=== PATIENT | female | born 1970 | race Caucasian/White ===

== ENCOUNTER → 2020-09-17 17:09 | Outpatient (BNVA) | payer OTHER, SELFPAY | PROVIDERS: Visit Provider Family Medicine | DX: Z20.828 Contact with and (suspected) exposure to other viral communicable diseases (principal) | CPT/HCPCS: 87635 ==

== ENCOUNTER 2020-10-18 22:30 | Emergency (ER) | payer OTHER, SELFPAY ==
[2020-10-18 22:32] VITALS: BP 142/79; PULSE 71; RESP 16; TEMP 36.8; O2SAT 98; BMI 29.2
--- NOTE | 2020-10-18 22:38 | W.ED.OVERDOS ---
HPI - Overdose General: Chief Complaint: Overdose Stated Complaint: STATES SWALLOWED POISON/35% FOOD GRADE PEROXIDE Time Seen by Provider: 10/18/20 22:38 History of Present Illness: HPI Narrative: Patient is a 50-year-old female comes to the ED after an accidental poison ingestion. Ingestion occurred just prior to arrival. Patient went to grab some water out of her refrigerator. By accident she grabbed the bottle of 35% food grade hydrogen peroxide. She states she took 1 large mouthful of drink and swallowed it. She then felt a burning pain in her mouth, throat, esophagus and down into her stomach. She felt nauseous and has had 1 episode of emesis upon arrival in the ED. no blood in emesis. Patient does not have any history of GERD or acid reflux. Denies any throat tightening or shortness of breath. Review of Systems Const: Denies: fever(s), chills or fatigue Eyes: Denies: change in vision or eye discomfort ENMT: Reports: throat pain (burning sensation); Denies: odynophagia, nasal discharge or nasal congestion Card: Denies: chest pain, palpitations, edema, swelling of feet/ankles, dyspnea on exertion or orthopnea Resp: Denies: dyspnea, productive cough or non-productive cough GI: Reports: abdominal pain (epigastric burning), nausea, vomiting and heartburn (burning pain in throat, esophagus and stomach); Denies: hematemesis, diarrhea, constipation or hematochezia : Denies: flank pain, dysuria or hematuria Musc: Denies: neck pain, back pain or extremity swelling Skin/Breast: Denies: rash or new lesions Neuro: Denies: headache(s), numbness in extremities or weakness in extremities Physical Exam Const: COMMON NORMALS: no acute distress, patient oriented x3 and alert GENERAL APPEARANCE: cooperative and comfortable HENMT: COMMON NORMALS: normocephalic HEAD & SCALP: normocephalic MOUTH: Normal oral and palatal mucosa present THROAT: uvula midline, abnormal tonsil bilateral erythema and other (Small possible burn brandon seen on tonsils) and posterior oropharynx abnormal erythema and other (Patient appears to have some small possible burn brandon seen.) Neck/C-Spine: COMMON NORMALS: supple GENERAL: Yes normal visual inspection Resp: COMMON NORMALS: normal respiratory effort, No retractions, No use of accessory muscles and clear to auscultation bilaterally AUSCULTATION: clear to auscultation bilaterally Cardio: COMMON NORMALS: regular rate, regular rhythm, S1 normal heart sound present, S2 normal heart sound present, No gallops present (Cardio), No clicks present (Cardio), No murmurs present (Cardio) and Peripheral pulses 2+ throughout RATE: regular rate RHYTHM: regular rhythm HEART SOUNDS: S1 normal heart sound present and S2 normal heart sound present PERIPHERAL PULSES: Peripheral pulses 2+ throughout GI: COMMON NORMALS: Normal to inspection, nondistended, normoactive bowel sounds present, Soft to palpation and no masses PALPATION: Yes Soft to palpation and Yes Tenderness to palpation present (GI) (mild epigastric tenderness) : COMMON NORMALS: Yes no CVA tenderness BLADDER/KIDNEY EXAM: Yes no CVA tenderness Back/Pelvis: COMMON NORMALS: no CVA tenderness Extremity: COMMON NORMALS: normal to inspection Neuro: COMMON NORMALS: patient oriented x3 and moves all extremities SENSORIUM/ORIENTATION: Yes alert Skin: GENERAL SKIN EXAM: dry skin Course Reevaluation(s): Reevaluation #1: Patient had a second episode of emesis while here in the ED. She has not gotten her IV Zofran or Protonix yet. Vomit did not have any blood in it. Time: 23:03 Consultations: Consultation #1: I contacted Dr. Royal and told about patient case. He stated that he does not deal with these kind of caustic injuries and he recommended to contact GI specialist to get further information on how to manage care of patient. Time: 22:59 Consultation #2: I was able to talk with Dr. Sutton a GI specialist at [facility] in [place]. I told about patient case and he recommended that I get a CT of patient's chest and abdomen. 1 immediately put her on a PPI and have patient n.p.o. He wants us to transfer patient to [facility] and have her admitted. She will see GI specialist tomorrow and they will perform an upper GI scope tomorrow. Time: 00:01 Vital Signs: Vital signs: Vital Signs Temperature 98.3 F 10/18/20 22:32 Pulse Rate 76 10/18/20 23:12 Respiratory Rate 18 10/18/20 23:12 Blood Pressure 144/97 10/18/20 23:12 Pulse Oximetry 94 10/18/20 23:25 MDM - Overdose MDM Narrative: Medical decision making narrative: Patient is a 50-year-old female comes to the ED after accidental ingestion of 35% hydrogen peroxide liquid. Patient thought she was drinking her water and excellently grabbed the peroxide liquid and took one big swallow. She has had nausea/vomiting and burning sensation in throat, esophagus and stomach. Patient has had 2 episodes of emesis while here in the ED and there is no blood seen in emesis. Upon exam back of patient's throat has erythema and some possible small burn spots seen. Patient denies any shortness of breath or trouble breathing. Patient was given IV fluids, Zofran and Protonix. Labs ordered and CT abdomen pelvis showed mucosal thickening in the gastric cardia and intrahepatic portal venous gas seen which both are indications of hydrogen peroxide ingestion. [facility] GI specialist was contacted and I told him about patient case. They wanted me to have patient transferred to [facility] as a direct admission and patient will see GI specialist tomorrow and get an upper GI scope. Told patient about plan and she understood and agreed with transfer. Lab Data: Attestation: I reviewed the patient's lab results. Labs: Lab Results 10/18/20 10/18/20 10/18/20 Range/Units 22:53 22:53 22:53 WBC 7.5 (4.0-10.0) 10^3/ uL RBC 4.54 (4.1-5.3) 10^6/u L Hgb 14.0 (11.5-15.3) g/dL Hct 41.2 (37.0-47.0) % MCV 90.7 (81-99) fL MCH 30.8 (28.0-34.0) pg MCHC 34.0 (30.0-36.0) g/dL RDW 12.5 (12.1-15.1) % Plt Count 193 193 (130-400) 10^3/c mm MPV 9.6 (7.4-10.4) fL Neut % (Auto) 50.8 % Lymph % (Auto) 38.5 % [place] % (Auto) 6.0 % Eos % (Auto) 3.6 % Baso % (Auto) 0.7 % Neut # (Auto) 3.78 (1.8-7.7) 10^3/u L Lymph # (Auto) 2.9 (0.8-4.8) 10^3/u L [place] # (Auto) 0.5 (0.2-0.9) 10^3/u L Eos # (Auto) 0.3 (0.0-0.8) 10^3/u L Baso # (Auto) 0.1 (0.0-0.1) 10^3/u L Nucleated RBC % (a uto) 0 % Nucleated RBCs # 0.0 /100WBC PT 12.70 (12.1-14.9) SECO NDS INR 0.93 (0.8-1.2) APTT 29.2 (23.9-36.7) SECO NDS Fibrinogen 260 (174-498) mg/dL Specimen Type Sample Site ABG pH (7.35-7.45) ABG pCO2 (35-45) mmHg ABG pO2 (80.0-100.0) mmH g ABG HCO3 (22-26) mmol/L ABG O2 Saturation ABG Base Excess (-2.0-2.0) mmol/ L Frankie Test A-a O2 Gradient (5-10) mmHg Hematocrit (37-47) % Hgb O2 Saturation (95-100) % Carboxyhemoglobin (0.4-20.1) %THgb Methemoglobin (0.4-1.5) % Total Hemoglobin (12-16) g/dL Ionized Calcium (1.1-1.4) mmol/L O2 Delivery Device Embroidery Patternmaker ID Sodium 137 (136-145) mmol/L Potassium 3.7 (3.5-5.1) mmol/L Chloride 103 (98-107) mmol/L Carbon Dioxide 26 (22-29) mmol/L Anion Gap 11.7 (5-19) BUN 13 (6-20) mg/dL Creatinine 0.6 (0.5-0.9) mg/dL GFR Calculation 106.7 (90-130) mL/min Glucose 112 (65-115) mg/dL Calculated Osmolal ity 285 (285-295) mOsm/k g Calcium 9.8 (8.5-10.5) mg/dL Total Bilirubin 0.2 (0.15-1.2) mg/dL AST 18 (0-32) U/L ALT 17 (0-33) U/L Alkaline Phosphata se 79 (35-105) IU/L Total Protein 6.8 (6.6-8.7) g/dL Albumin 4.2 (3.5-5.2) g/dL Globulin 2.6 (1.3-4.6) g/dL HCG, Qual (Negative) Ethyl Alcohol (0-10) mg/dL 10/18/20 10/18/20 10/18/20 Range/Units 22:53 22:53 23:56 WBC (4.0-10.0) 10^3/ uL RBC (4.1-5.3) 10^6/u L Hgb (11.5-15.3) g/dL Hct (37.0-47.0) % MCV (81-99) fL MCH (28.0-34.0) pg MCHC (30.0-36.0) g/dL RDW (12.1-15.1) % Plt Count (130-400) 10^3/c mm MPV (7.4-10.4) fL Neut % (Auto) % Lymph % (Auto) % [place] % (Auto) % Eos % (Auto) % Baso % (Auto) % Neut # (Auto) (1.8-7.7) 10^3/u L Lymph # (Auto) (0.8-4.8) 10^3/u L [place] # (Auto) (0.2-0.9) 10^3/u L Eos # (Auto) (0.0-0.8) 10^3/u L Baso # (Auto) (0.0-0.1) 10^3/u L Nucleated RBC % (a uto) % Nucleated RBCs # /100WBC PT (12.1-14.9) SECO NDS INR (0.8-1.2) APTT (23.9-36.7) SECO NDS Fibrinogen (174-498) mg/dL Specimen Type Arterial Sample Site Brachial, left ABG pH 7.39 (7.35-7.45) ABG pCO2 43.3 (35-45) mmHg ABG pO2 87.3 (80.0-100.0) mmH g ABG HCO3 26.5 H (22-26) mmol/L ABG O2 Saturation 97.4 ABG Base Excess 1.2 (-2.0-2.0) mmol/ L Frankie Test N/a A-a O2 Gradient 1.5 L (5-10) mmHg Hematocrit 42.2 (37-47) % Hgb O2 Saturation 96.0 (95-100) % Carboxyhemoglobin 0.6 (0.4-20.1) %THgb Methemoglobin 0.9 (0.4-1.5) % Total Hemoglobin 13.8 (12-16) g/dL Ionized Calcium 1.3 (1.1-1.4) mmol/L O2 Delivery Device Room air Embroidery Patternmaker ID Harkr Sodium 143.0 (136-145) mmol/L Potassium 3.6 (3.5-5.1) mmol/L Chloride (98-107) mmol/L Carbon Dioxide (22-29) mmol/L Anion Gap (5-19) BUN (6-20) mg/dL Creatinine (0.5-0.9) mg/dL GFR Calculation (90-130) mL/min Glucose 121.0 H (65-115) mg/dL Calculated Osmolal ity (285-295) mOsm/k g Calcium (8.5-10.5) mg/dL Total Bilirubin (0.15-1.2) mg/dL AST (0-32) U/L ALT (0-33) U/L Alkaline Phosphata se (35-105) IU/L Total Protein (6.6-8.7) g/dL Albumin (3.5-5.2) g/dL Globulin (1.3-4.6) g/dL HCG, Qual Negative (Negative) Ethyl Alcohol < 10 (0-10) mg/dL Imaging Data^: CXR: Attestation: I personally reviewed and interpreted this imaging study as follows: CT Abd/Pel: Attestation: I personally reviewed and interpreted this imaging study as follows: Radiologist's impression: [address] [address] [address] Scan Report Signed Patient: Allison Molina Unit #: [id number] : 1970 Age/Sex: 50 / F ADM Date: 10/18/20 Loc: ER Room/Bed: Attending Dr: Ordering Provider/Ordering MD: Ovidio Monahan Date of Service: 10/18/20 Procedure(s): CT chest abdomen w con* Accession Number(s): [id number] Report Number: [id number] PROCEDURE INFORMATION: Exam: CT Chest With Contrast; Diagnostic Exam date and time: 10/18/2020 11:47 PM Age: 50 years old Clinical indication: Abdominal pain; Generalized; Chest pain; Prior surgery; Surgery type: Gb; Additional info: Epigastric pain-peroxide ingestion TECHNIQUE: Imaging protocol: Diagnostic computed tomography of the chest with intravenous contrast. Radiation optimization: All CT scans at this facility use at least one of these dose optimization techniques: automated exposure control; mA and/or kV adjustment per patient size (includes targeted exams where dose is matched to clinical indication); or iterative reconstruction. Contrast material: OMNI 300; Contrast volume: 95 ml; Contrast route: INTRAVENOUS (IV); COMPARISON: CR XR chest 1V portable [id number] 10/18/2020 11:13 PM RADIATION DOSE METRICS: Total DLP (mGy-cm): 1124.66 FINDINGS: Lungs: Lungs are clear. Pleural spaces: There is no pleural effusion or pneumothorax. Heart: The heart is unremarkable. There is no pericardial effusion. Pulmonary arteries: The central pulmonary arteries are unremarkable. Aorta: The aorta is unremarkable. There is no aneurysm. Lymph nodes: There is no mediastinal or hilar lymphadenopathy. Bones/joints: The visible portions of the clavicles and shoulders, scapula, ribs, sternum, and spine are unremarkable. Soft tissues: The extrathoracic soft tissues are unremarkable. IMPRESSION: No acute findings.. PROCEDURE INFORMATION: Exam: CT Abdomen With Contrast Exam date and time: 10/18/2020 11:47 PM Age: 50 years old Clinical indication: Abdominal pain; Generalized; Chest pain; Prior surgery; Surgery type: Gb; Additional info: Epigastric pain-peroxide ingestion TECHNIQUE: Imaging protocol: Computed tomography images of the abdomen with intravenous contrast. Radiation optimization: All CT scans at this facility use at least one of these dose optimization techniques: automated exposure control; mA and/or kV adjustment per patient size (includes targeted exams where dose is matched to clinical indication); or iterative reconstruction. Contrast material: OMNI 300; Contrast volume: 95 ml; Contrast route: INTRAVENOUS (IV); COMPARISON: CR XR chest 1V portable [id number] 10/18/2020 11:13 PM RADIATION DOSE METRICS: Total DLP (mGy-cm): 1124.66 FINDINGS: Liver: There is extensive portal venous gas in the liver. No liver abnormality otherwise. Gallbladder and bile ducts: The gallbladder is absent. There is no intrahepatic or extrahepatic bile duct dilation. Pancreas: The pancreas is unremarkable. Spleen: The spleen is unremarkable. Adrenals: The adrenal glands are unremarkable. Kidneys and ureters: The kidneys are unremarkable. No hydronephrosis or stones. No ureteral dilation. Stomach and bowel: There is mucosal thickening in the gastric cardia. The visible portion of the small bowel is normal. The visible portion of the colon is normal. Appendix: The appendix is normal. Intraperitoneal space: There is no free air or significant intraperitoneal free fluid. Lymph nodes: No lymphadenopathy in the retroperitoneum or mesentery. Vasculature: The portal, splenic and superior mesenteric veins are patent. The aorta is unremarkable. There is no aneurysm. Bones/joints: Bones are unremarkable. Soft tissues: There is a small multifocal fat containing ventral hernia. CT/CT chest abdomen w con* IMPRESSION: 1. Extensive intrahepatic portal venous gas. In the setting of hydrogen peroxide ingestion, this finding may be related to mucosal injury and/or chemical decomposition of absorbed hydrogen peroxide into gaseous oxygen and water. 2. Mucosal thickening in the gastric cardia. This may be related to mucosal injury from hydrogen peroxide ingestion. Radiation Dose CTDIVOL = (mGy): DLP = 1124.66 1124.66 (mGy-cm) Dictated By: Chau Kim MD Signed By: Chau Kim MD Signed Date/Time: 10/19/20 0040 DD/ [id number] Discharge Plan Discharge Patient Disposition: Xfer Other Clinical Impression: Ingestion of caustic substance Qualifiers: Encounter type: initial encounter Injury intent: accidental or unintentional Qualified Code(s): T54.91XA - Toxic effect of unspecified corrosive substance, accidental (unintentional), initial encounter Condition: Stable Referrals: Evans Bloom DO [Primary Care Provider] - Coding Level of Care Code ED Drilling And Production Superintendent for Chg Fwd Exam Comprehensive
--- NOTE | 2020-10-18 22:59 | XR_ITS ---
WS: [id number] Exam: XR chest 1V portable [id number] Date/Time of Exam: 10/18/2020 11:01 PM Reason For Exam: epigastric pain Findings: The lungs are clear and fully expanded. Costophrenic angles are sharp. No infiltrates. Bronchovascula r relief appears normal. Cardiac silhouette is unremarkable. Bony elements are intact. XR/XR chest 1V portable [id number] IMPRESSION: Unremarkable chest radiograph.
[2020-10-18 23:00] LABS: Basophils # 0.1 10^3/uL (0.0-0.1); Basophils % 0.7 %; Eosinophils # 0.3 10^3/uL (0.0-0.8); Eosinophils % 3.6 %; Hematocrit 41.2 % (37.0-47.0); Lymphocytes # 2.9 10^3/uL (0.8-4.8); Lymphocytes % 38.5 %; Mean Corpuscular Hemoglobin 30.8 pg (28.0-34.0); Mean Corpuscular Volume 90.7 fL (81-99); Mean Platelet Volume 9.6 fL (7.4-10.4); Monocytes # 0.5 10^3/uL (0.2-0.9); Neutrophils # 3.78 10^3/uL (1.8-7.7); Neutrophils % 50.8 %; Nucleated Red Blood Cells % 0 %; Platelet Count 193 10^3/cmm (130-400); Red Blood Count 4.54 10^6/uL (4.1-5.3); Red Cell Distribution Width 12.5 % (12.1-15.1); White Blood Count 7.5 10^3/uL (4.0-10.0)
[2020-10-18] MEDS: ondansetron 2 mg/ML SDV 2 mL 4 MG IVP (23:03)
[2020-10-18] MEDS: sodium chloride 0.9% 1,000 ML 999 ML IV (23:04)
[2020-10-18 23:07] LABS: HCG, Serum Qual Negative (Negative)
[2020-10-18 23:09] LABS: INR 0.93 (0.8-1.2)
[2020-10-18 23:10] LABS: Partial Thromboplastin Time 29.2 SECONDS (23.9-36.7)
[2020-10-18 23:11] LABS: Fibrinogen 260 mg/dL (174-498)
[2020-10-18 23:12] VITALS: BP 144/97; PULSE 76; RESP 18; O2SAT 96
[2020-10-18 23:17] LABS: Alanine Aminotransferase 17 U/L (0-33); Albumin Level 4.2 g/dL (3.5-5.2); Alkaline Phosphatase 79 IU/L (35-105); Anion Gap 11.7 (5-19); Aspartate Amino Transferase 18 U/L (0-32); Blood Urea Nitrogen 13 mg/dL (6-20); Calcium 9.8 mg/dL (8.5-10.5); Carbon Dioxide 26 mmol/L (22-29); Chloride 103 mmol/L (98-107); Creatinine Clr Calc Pharmacy 111.1041; Globulin 2.6 g/dL (1.3-4.6); Glomerular Filtration Rate 106.7 mL/min (90-130); Glucose 112 mg/dL (65-115); Osmolality Calculated 285 mOsm/kg (285-295); Potassium 3.7 mmol/L (3.5-5.1); Sodium 137 mmol/L (136-145); Total Bilirubin 0.2 mg/dL (0.15-1.2); Total Protein 6.8 g/dL (6.6-8.7)
[2020-10-18 23:25] VITALS: O2SAT 94
[2020-10-18] MEDS: pantoprazole 40 mg SDV IVP (23:32)
[2020-10-18 23:37] LABS: Platelet Count 193 10^3/cmm (130-400)
--- NOTE | 2020-10-18 23:44 | CTR_ITS ---
PROCEDURE INFORMATION: Exam: CT Chest With Contrast; Diagnostic Exam date and time: 10/18/2020 11:47 PM Age: 50 years old Clinical indication: Abdominal pain; Generalized; Chest pain; Prior surgery; Surgery type: Gb; Additional info: Epigastric pain-peroxide ingestion TECHNIQUE: Imaging protocol: Diagnostic computed tomography of the chest with intravenous contrast. Radiation optimization: All CT scans at this facility use at least one of these dose optimization techniques: automated exposure control; mA and/or kV adjustment per patient size (includes targeted exams where dose is matched to clinical indication); or iterative reconstruction. Contrast material: OMNI 300; Contrast volume: 95 ml; Contrast route: INTRAVENOUS (IV); COMPARISON: CR XR chest 1V portable [id number] 10/18/2020 11:13 PM RADIATION DOSE METRICS: Total DLP (mGy-cm): 1124.66 FINDINGS: Lungs: Lungs are clear. Pleural spaces: There is no pleural effusion or pneumothorax. Heart: The heart is unremarkable. There is no pericardial effusion. Pulmonary arteries: The central pulmonary arteries are unremarkable. Aorta: The aorta is unremarkable. There is no aneurysm. Lymph nodes: There is no mediastinal or hilar lymphadenopathy. Bones/joints: The visible portions of the clavicles and shoulders, scapula, ribs, sternum, and spine are unremarkable. Soft tissues: The extrathoracic soft tissues are unremarkable. IMPRESSION: No acute findings.. PROCEDURE INFORMATION: Exam: CT Abdomen With Contrast Exam date and time: 10/18/2020 11:47 PM Age: 50 years old Clinical indication: Abdominal pain; Generalized; Chest pain; Prior surgery; Surgery type: Gb; Additional info: Epigastric pain-peroxide ingestion TECHNIQUE: Imaging protocol: Computed tomography images of the abdomen with intravenous contrast. Radiation optimization: All CT scans at this facility use at least one of these dose optimization techniques: automated exposure control; mA and/or kV adjustment per patient size (includes targeted exams where dose is matched to clinical indication); or iterative reconstruction. Contrast material: OMNI 300; Contrast volume: 95 ml; Contrast route: INTRAVENOUS (IV); COMPARISON: CR XR chest 1V portable [id number] 10/18/2020 11:13 PM RADIATION DOSE METRICS: Total DLP (mGy-cm): 1124.66 FINDINGS: Liver: There is extensive portal venous gas in the liver. No liver abnormality otherwise. Gallbladder and bile ducts: The gallbladder is absent. There is no intrahepatic or extrahepatic bile duct dilation. Pancreas: The pancreas is unremarkable. Spleen: The spleen is unremarkable. Adrenals: The adrenal glands are unremarkable. Kidneys and ureters: The kidneys are unremarkable. No hydronephrosis or stones. No ureteral dilation. Stomach and bowel: There is mucosal thickening in the gastric cardia. The visible portion of the small bowel is normal. The visible portion of the colon is normal. Appendix: The appendix is normal. Intraperitoneal space: There is no free air or significant intraperitoneal free fluid. Lymph nodes: No lymphadenopathy in the retroperitoneum or mesentery. Vasculature: The portal, splenic and superior mesenteric veins are patent. The aorta is unremarkable. There is no aneurysm. Bones/joints: Bones are unremarkable. Soft tissues: There is a small multifocal fat containing ventral hernia. CT/CT chest abdomen w con* IMPRESSION: 1. Extensive intrahepatic portal venous gas. In the setting of hydrogen peroxide ingestion, this finding may be related to mucosal injury and/or chemical decomposition of absorbed hydrogen peroxide into gaseous oxygen and water. 2. Mucosal thickening in the gastric cardia. This may be related to mucosal injury from hydrogen peroxide ingestion. Radiation Dose CTDIVOL = (mGy): DLP = 1124.66~1124.66 (mGy-cm)
[2020-10-19 00:06] LABS: ABG PCO2 43.3 mmHg (35-45); ABG PH Result 7.39 (7.35-7.45); Alveolar-Arterial Oxygen Gradi 1.5 mmHg (5-10); Arterial Blood Gas Hematocrit 42.2 % (37-47); Base Excess ABG 1.2 mmol/L (-2.0-2.0); Blood Gas Operator Identificat HARKR; Blood Gas Sample Site Brachial, left; Blood Gas Sample Type Arterial; Carboxyhemoglobin 0.6 %THgb (0.4-20.1); HCO3 ABG 26.5 mmol/L (22-26); Ionized Calcium Level - ABG 1.3 mmol/L (1.1-1.4); Methemoglobin 0.9 % (0.4-1.5); Oxygen Device ROOM AIR; Oxygen Saturation ABG 97.4; PO2 ABG 87.3 mmHg (80.0-100.0); Potassium Level - ABG 3.6 mmol/L (3.5-5.0); Total Hemoglobin 13.8 g/dL (12-16)
--- NOTE | 2020-10-19 00:10 | PC.NURSE ---
[facility]
[2020-10-19 00:23] LABS: Alcohol Level < 10 mg/dL (0-10)
--- NOTE | 2020-10-19 00:42 | PC.NURSE ---
Report called to Maxwell Martin RN at [facility]. All questions answered.
[2020-10-19 01:16] VITALS: BP 109/74; RESP 18; O2SAT 94
[2020-10-19 02:03] VITALS: BP 120/73; PULSE 80; RESP 18; O2SAT 94
== END 2020-10-19 02:05 | disposition other institution (70) ==
PROVIDERS: Emergency Provider Physician Assistant; PCP Internal Medicine
DX: T49.0X1A Poisoning by local antifungal, anti-infective and anti-inflammatory drugs, accidental (unintentional), initial encounter (principal)
CPT/HCPCS: 12345; 36600; 71045; 71260; 74160; 80051; 80053; 80307; 82330; 82805; 83605; 84703; 85025; 85049; 85384; 85610; 85730; 96361; 96374; 96375; 99283; 99285; C9113; J2405; J7030; Q9967

== ENCOUNTER → 2021-03-14 16:35 | Outpatient (BNVA) | payer OTHER, SELFPAY | PROVIDERS: PCP Internal Medicine; Visit Provider Obstetrics & Gynecology | DX: R23.2 Flushing (principal) | CPT/HCPCS: 82670; 83001 ==

== ENCOUNTER 2021-07-06 07:41 | Outpatient (CLI) | payer OTHER, SELFPAY ==
--- NOTE | 2021-07-06 07:48 | MM_ITS ---
WS: [id number] BILATERAL DIGITAL SCREENING MAMMOGRAPHY WITH CAD CLINICAL INFORMATION: Z12.39 - Encounter for other screening for malignant neop... HISTORY: Screening mammogram. No current complaints. COMPARISON: None. TECHNIQUE: Bilateral CC and MLO views. FINDINGS: Scattered fibroglandular densities bilaterally. A few tiny punctate calcifications left breast No rosie picious focal mass, asymmetry, calcifications, or architectural distortion. No evidence of malignancy . MM/[place] [id number] IMPRESSION: BI-RADS: 2-Benign FOLLOW UP: 1 Year Follow-up Recommend return to annual screening mammography.
== END 2021-07-06 07:42 | disposition home or self-care (01) ==
LOC: RADSHAW 07:45
PROVIDERS: PCP Internal Medicine; Visit Provider Obstetrics & Gynecology
DX: Z12.31 Encounter for screening mammogram for malignant neoplasm of breast (principal)
CPT/HCPCS: 77067

== ENCOUNTER → 2021-11-02 13:56 | Outpatient (BNVA) | payer SELFPAY | PROVIDERS: PCP Internal Medicine; Visit Provider Nurse Practitioner Family | DX: Z20.822 Contact with and (suspected) exposure to COVID-19 (principal) | CPT/HCPCS: 87635 ==